=== PATIENT | male | born 1935 | race Caucasian/White ===

== ENCOUNTER → 2017-07-02 | Outpatient (CLI) | payer MEDICARE, BC ==
[~2017-07-02] MED LIST: ASCRIPTIN PO; ASPIRIN 81M81 MG/TA2 PO; ATENOLOL PO; ATENOLOL25 MG PO; BETAPACE 120MG120 MG PO; BETAPACE 80MG80 MG PO; BUFFERED ASPIR325 M1 PO; CEPHALEXIN500 M1 PO; DILTIAZEM PO; DIOVAN160 MG PO; ELIQUIS 5MG PO; FERROUS SU325 MG/TAB PO; FISH OIL CONC1000 MG PO; FLOMAX 0.40.4 MG/CAP PO; FLOMAX PO; FOLIC ACID 40400 MCG PO; GARLIQUE PO; GLUCOSAMINE PO; GLUCOSAMINE/CHONDROI PO; MACRODANTIN PO; NITROSTAT0.4 MG/TAB SL; PERCOCET 5/321 UDTAB PO; SENOKOT8.6 MG PO; TENORMIN 5050 MG/TAB PO; VASOTEC 5MG5 MG/TAB PO; VITAMIN C500 MG PO; ZOCOR 20MG20 MG PO; ZOCOR 40MG40 MG PO; ZOCOR PO
== END ==
LOC: COL.RAD 13:30
DX: N32.89 Other specified disorders of bladder (principal); K82.0 Obstruction of gallbladder

== ENCOUNTER 2018-02-12 06:25 | Day surgery (SDC) | payer MEDICARE, BC ==
[2018-02-12] VITALS (7 sets, daily range): BP systolic 144–166; BP diastolic 72–82; PULSE 43–66; TEMP 97.3–97.7
[~2018-02-12] VITALS: Ht 172.7 cm; Wt 81.5 kg
[~2018-02-12 06:25] MED LIST changes: +HCTZ12.5TAB PO; -VASOTEC 5MG5 MG/TAB PO; +VASOTEC20 MG PO
[2018-02-12] MEDS ORDERED: PROSCAR 5MG5 MG PO (07:33)
[2018-02-12] MEDS ORDERED: ELIQUIS 5MG PO (07:33)
[2018-02-12] MEDS ORDERED: NORCO 325 MG-51 TAB PO (11:52)
== END 2018-02-12 13:00 | disposition home or self-care (01) ==
LOC: SDCO 06:25
DX: K40.90 Unilateral inguinal hernia, without obstruction or gangrene, not specified as recurrent (principal); I10 Essential (primary) hypertension; Z79.02 Long term (current) use of antithrombotics/antiplatelets; Z79.82 Long term (current) use of aspirin; Z95.1 Presence of aortocoronary bypass graft; Z86.79 Personal history of other diseases of the circulatory system; R33.9 Retention of urine, unspecified; N40.0 Benign prostatic hyperplasia without lower urinary tract symptoms; I51.9 Heart disease, unspecified; Z88.5 Allergy status to narcotic agent; Z79.01 Long term (current) use of anticoagulants
CPT/HCPCS: A4314; C1781; J0690; J2405; J2704; J2710; J3010; J7120

== ENCOUNTER → 2020-06-07 | Outpatient (CLI) | payer MEDICARE, BC ==
[~2020-06-07] MED LIST changes: +NORCO 325 MG-51 TAB PO; +PROSCAR 5MG5 MG PO
== END ==
LOC: COL.RAD 13:42
DX: N32.89 Other specified disorders of bladder (principal); N28.89 Other specified disorders of kidney and ureter; J98.4 Other disorders of lung; N40.0 Benign prostatic hyperplasia without lower urinary tract symptoms; I71.9 Aortic aneurysm of unspecified site, without rupture
CPT/HCPCS: Q9967

== ENCOUNTER 2021-07-25 08:04 | Outpatient (CLI) | payer MEDICARE, BC ==
[~2021-07-25] VITALS: Ht 172.8 cm; Wt 87.0 kg
[2021-07-25 08:42] LABS: HEMATOCRIT 37.9 % (42.0-52.0); HEMOGLOBIN 12.3 g/dl (13.5-18.0); MEAN CELL VOLUME 85 fl (80.0-100.0); MEAN CORPUSCULAR HEMOGLOBIN 28 pg (27.0-31.0); MEAN CORPUSCULAR HGB CONC 33 g/dl (33.0-37.0); MEAN PLATELET VOLUME 9.5 fl (7.4-10.4); PLATELET COUNT 189 K/mm3 (130-400); RED BLOOD COUNT 4.47 M/mm3 (4.20-5.60); REDCELL DISTRIBUTION WIDTH-CV 13.7 % (11.5-14.5)
[2021-07-25] MEDS ORDERED: NITROSTAT0.4 MG/TAB SL (08:49)
[2021-07-25] MEDS ORDERED: HYGROTON 2525 MG/TAB PO (08:51)
[2021-07-25] MEDS ORDERED: NORVASC 5MG5 MG/TAB (08:51)
[2021-07-25 08:55] LABS: INR 2.4 (0.8-3.0); PROTHROMBIN TIME 26.7 SECONDS (9.7-12.8)
[2021-07-25 09:17] LABS: CALCIUM 9.8 mg/dL (8.4-10.2); CREATININE, serum 0.97 mg/dL (0.72-1.25); POTASSIUM 4.4 mmol/L (3.5-4.5)
[2021-07-25 09:31] VITALS: BP 129/70; PULSE 62; TEMP 97.7
[2021-07-25 10:30] VITALS: BP 109/73; PULSE 51
--- NOTE | 2021-07-25 10:30 | NUR ---
pt is awake and alert, sits up in bed, daughter in room, states Dr talked with her in waiting room, pt sips on sprite, no c/o
[2021-07-25 10:45] VITALS: BP 111/74; PULSE 55
[2021-07-25 11:00] VITALS: BP 119/76; PULSE 50
--- NOTE | 2021-07-25 11:00 | NUR ---
PT SITS ON SIDE OF BED, STOOD WITHOUT PROBLEMS. REVIEWED DISCHARGE INST. WITH PT ON MODERATE SEDATION PRECAUTIONS, FOLLOUP WITH COTTON O'RAJENDRA AND REFERRAL THAT WILL BE MADE BY OFFICE WITH VERBAL UNDERSTANDING.
[2021-07-25 11:15] VITALS: BP 120/81; PULSE 60
--- NOTE | 2021-07-25 11:30 | NUR ---
IV D'CD INTACT, PT UP AND DRESSED, DISCHARGED VIA W/C TO CAR WITH FAMILY
== END 2021-07-25 11:30 | disposition home or self-care (01) ==
LOC: COL.RAD 08:04
PROVIDERS: Internal Medicine Cardiovascular Disease
DX: I34.0 Nonrheumatic mitral (valve) insufficiency (principal)
CPT/HCPCS: J2704

== ENCOUNTER → 2021-11-12 | Outpatient (RCR) | payer MEDICARE, BC ==
[~2021-11-12] MED LIST changes: +HYGROTON 2525 MG/TAB PO; +NORVASC 5MG5 MG/TAB
== END | disposition home or self-care (01) ==
LOC: COL.CR
DX: Z48.812 Encounter for surgical aftercare following surgery on the circulatory system (principal)

== ENCOUNTER → 2021-12-10 | Outpatient (RCR) | payer MEDICARE, BC | END | disposition home or self-care (01) | LOC: COL.CR | DX: Z48.812 Encounter for surgical aftercare following surgery on the circulatory system (principal); Z95.2 Presence of prosthetic heart valve ==

== ENCOUNTER → 2022-01-08 | Outpatient (CLI) | payer MEDICARE, BC | LOC: COL.PUL 11:18 | DX: R06.00 Dyspnea, unspecified (principal) ==

== ENCOUNTER 2022-01-09 14:28 | Outpatient (RCR) | payer MEDICARE, BC | END 2022-01-10 | disposition home or self-care (01) | LOC: COL.CR | DX: Z48.812 Encounter for surgical aftercare following surgery on the circulatory system (principal) ==

== ENCOUNTER 2022-02-06 15:06 | Outpatient (RCR) | payer MEDICARE, BC | END 2022-02-09 | disposition home or self-care (01) | LOC: COL.CR | DX: Z48.812 Encounter for surgical aftercare following surgery on the circulatory system (principal) ==

== ENCOUNTER 2022-02-11 08:51 | Outpatient (RCR) | payer SELFPAY ==
[2022-02-14] MEDS ORDERED: MAG-OX 400400 MG/TAB PO (15:48)
[2022-02-14] MEDS ORDERED: TYLENOL 325MG325 MG PO (21:28)
[2022-02-15] MEDS ORDERED: LASIX 20MG TABL20 MG PO (11:57)
[2022-02-15] MEDS ORDERED: ALDACTONE 25MG25 M1 PO (11:58)
== END 2022-03-12 ==
LOC: COL.CR
DX: Z29.8 Encounter for other specified prophylactic measures (principal)

== ENCOUNTER 2022-02-14 14:53 | Observation (INO) | payer MEDICARE, BC ==
[~2022-02-14] VITALS: Ht 172.7 cm; Wt 83.7 kg
[2022-02-14 15:38] LABS: BASO # 0.1 K/mm3 (0.0-0.2); BASO % 0.9 % (0.0-2.0); EOS # 0.3 K/mm3 (0.0-0.7); GRAN # 4.7 K/mm3 (1.4-6.5); GRAN % 73.7 % (42.2-75.2); HEMATOCRIT 41.2 % (42.0-52.0); LYMPH # 0.5 K/mm3 (1.2-3.4); LYMPH % 7.8 % (20.0-51.0); MEAN CELL VOLUME 86 fl (80.0-100.0); MEAN CORPUSCULAR HEMOGLOBIN 27 pg (27-31); MEAN CORPUSCULAR HGB CONC 32 g/dl (33.0-37.0); MONO # 0.8 K/mm3 (0.1-0.6); MONO % 13.3 % (1.7-9.3); PLATELET COUNT 193 K/mm3 (130-400); RED BLOOD COUNT 4.79 M/mm3 (4.20-5.60); REDCELL DISTRIBUTION WIDTH-CV 15.7 % (11.5-14.5)
[2022-02-14 15:44] LABS: INR 2.6 (0.8-3.0); PROTHROMBIN TIME 29.7 SECONDS (9.7-12.8)
[2022-02-14 15:47] LABS: PARTIAL THROMBOPLASTIN TIME 40.3 SECONDS (26.0-37.0)
[2022-02-14] MEDS ORDERED: MAG-OX 400400 MG/TAB PO (15:48)
[2022-02-14 15:52] LABS: ALBUMIN 3.4 gm/dL (3.4-4.8); BILIRUBIN,TOTAL 1.2 mg/dL (0.2-1.2); CALCIUM 8.7 mg/dL (8.4-10.2); CREATININE, serum 1.08 mg/dL (0.72-1.25); POTASSIUM 4.9 mmol/L (3.5-4.5); TOTAL PROTEIN 6.5 gm/dL (6.2-8.1)
[2022-02-14 16:02] LABS: TROPONIN-I 0.054 ng/mL (0.00-0.033)
[2022-02-14] MEDS ORDERED: TYLENOL 325MG325 MG PO (21:28)
[2022-02-14 22:40] VITALS: BP 153/80; PULSE 42; TEMP 97.9
--- NOTE | 2022-02-14 23:20 | NUR ---
Admitted to medical floor from ER- dx SOB, Afib, RVR-cardioverted in ER, CHF,, very pleasant ,alert/oriented, VSS, denies pain/SOB at this time, Tele on SR rate 70/min, Lasix 20 mg IV given as ordered, urinal at bedside- understands we need a urine specimen-- will call when urinates, given a snack at this time- states did not have supper, Understands to call for assistance when out of bed, Echo in AM, Elsa Panda called about most recent troponin of 0.058
[2022-02-15 02:35] LABS: COLLECTION METHOD CLEAN CATCH
[2022-02-15 02:39] LABS: PH 5 (5-8); SQUAMOUS EPITHELIAL None Seen /hpf (0-10); URINE APPEARANCE Clear (CLEAR/HAZY); URINE BACTERIA None Seen /hpf (NONE SEEN); URINE BILIRUBIN Negative (NEGATIVE); URINE BLOOD Negative (NEGATIVE); URINE COLOR Yellow (YELLOW); URINE GLUCOSE Negative (NEGATIVE); URINE KETONE Negative (NEGATIVE); URINE LEUKOCYTE ESTERASE Negative (NEGATIVE); URINE NITRATE Negative (NEGATIVE); URINE PROTEIN(semi-quant) 1+ (NEGATIVE); URINE RBC 0-2 /hpf (0-2); URINE UROBILINOGEN Negative (NEGATIVE)
[2022-02-15 03:53] VITALS: BP 122/72; PULSE 52; TEMP 97.6
--- NOTE | 2022-02-15 05:31 | NUR ---
Did get a few hours of sleep, Tele on- SR at this time, according to Tele, did go back into afib just for a short time last night- HR controlled all night. Did void x2 in restroom, and had 450cc per urinal last night after the Lasix IV.
[2022-02-15 05:53] LABS: BASO # 0.1 K/mm3 (0.0-0.2); EOS # 0.3 K/mm3 (0.0-0.7); EOS % 6.5 % (0.0-4.0); GRAN # 3.5 K/mm3 (1.4-6.5); GRAN % 67.1 % (42.2-75.2); HEMATOCRIT 37.5 % (42.0-52.0); HEMOGLOBIN 11.9 g/dl (13.5-18.0); LYMPH # 0.5 K/mm3 (1.2-3.4); MEAN CELL VOLUME 87 fl (80.0-100.0); MEAN CORPUSCULAR HEMOGLOBIN 28 pg (27-31); MEAN CORPUSCULAR HGB CONC 32 g/dl (33.0-37.0); MEAN PLATELET VOLUME 9.8 fl (7.4-10.4); MONO # 0.8 K/mm3 (0.1-0.6); MONO % 15.2 % (1.7-9.3); PLATELET COUNT 154 K/mm3 (130-400); RED BLOOD COUNT 4.32 M/mm3 (4.20-5.60); REDCELL DISTRIBUTION WIDTH-CV 15.7 % (11.5-14.5)
[2022-02-15 06:12] LABS: CALCIUM 8.7 mg/dL (8.4-10.2); CREATININE, serum 1.08 mg/dL (0.72-1.25); POTASSIUM 4.8 mmol/L (3.5-4.5)
[2022-02-15 06:29] LABS: TROPONIN-I 0.06 ng/mL (0.00-0.033)
[2022-02-15 07:22] VITALS: BP 135/79; PULSE 42; TEMP 97.8
--- NOTE | 2022-02-15 10:50 | NUR ---
Patient sitting in bed upon entering the room. Patient denies any SOB, chest pain, heart racing, or dizziness. Patient reports that he feels well. Patient is A&Ox4, and a SBA. Patient is using the urinal for urine measurement. Call light is w/in reach. Patient encouraged to use it if any needs arise.
[2022-02-15 11:15] VITALS: BP 146/78; PULSE 71; TEMP 98.2
--- NOTE | 2022-02-15 11:40 | NUR ---
First visit from the vessel manager. No needs right now.
[2022-02-15] MEDS ORDERED: LASIX 20MG TABL20 MG PO (11:57)
[2022-02-15] MEDS ORDERED: ALDACTONE 25MG25 M1 PO (11:58)
[2022-02-15 12:00] LABS: MAGNESIUM 1.9 mg/dL (1.6-2.6)
[2022-02-15 12:21] LABS: TSH w REFLEX 1.208 uIU/mL (0.350-4.940)
--- NOTE | 2022-02-15 13:10 | NUR ---
Patient discharged home. IV and telemetry removed by this RN. All education and instructions discussed w/ patient and his daugter. Both verbalized understanding and patient signed appropriate paperwork. Patient denied any concerns at the time of discharge.
== END 2022-02-15 13:00 | disposition home or self-care (01) ==
LOC: COL.ER 14:53 → MEDICAL 20:32
PROVIDERS: Family Medicine; Nurse Practitioner Family; Physician Assistant; ADMIT Student in an Organized Health Care Education/Training Program
DX: I48.0 Paroxysmal atrial fibrillation (principal); I27.20 Pulmonary hypertension, unspecified; I08.1 Rheumatic disorders of both mitral and tricuspid valves; I25.2 Old myocardial infarction; I11.0 Hypertensive heart disease with heart failure; I50.20 Unspecified systolic (congestive) heart failure; E78.5 Hyperlipidemia, unspecified; I25.10 Atherosclerotic heart disease of native coronary artery without angina pectoris; J44.9 Chronic obstructive pulmonary disease, unspecified; E87.5 Hyperkalemia; D64.9 Anemia, unspecified; E87.1 Hypo-osmolality and hyponatremia; E87.2 Acidosis; Z95.1 Presence of aortocoronary bypass graft; Z95.2 Presence of prosthetic heart valve; Z79.899 Other long term (current) drug therapy; Z79.01 Long term (current) use of anticoagulants
CPT/HCPCS: 99223-AI; G0378; J1940; J2250; J2704

== ENCOUNTER → 2022-02-18 | Outpatient (CLI) | payer MEDICARE, BC ==
[~2022-02-18] MED LIST changes: +ALDACTONE 25MG25 M1 PO; +LASIX 20MG TABL20 MG PO; +MAG-OX 400400 MG/TAB PO; +TYLENOL 325MG325 MG PO
[2022-02-18 15:55] LABS: CALCIUM 8.8 mg/dL (8.4-10.2); CREATININE, serum 1.05 mg/dL (0.72-1.25); MAGNESIUM 1.7 mg/dL (1.6-2.6); POTASSIUM 4.4 mmol/L (3.5-4.5)
== END ==
LOC: COL.LAB 14:57
PROVIDERS: Physician Assistant
DX: I50.9 Heart failure, unspecified (principal)

== ENCOUNTER 2022-04-10 14:41 | Outpatient (RCR) | payer SELFPAY | END 2022-04-11 | LOC: COL.CR | DX: Z29.8 Encounter for other specified prophylactic measures (principal) ==

== ENCOUNTER 2022-04-12 14:52 | Outpatient (RCR) | payer SELFPAY | END 2022-05-12 | LOC: COL.CR | DX: Z29.8 Encounter for other specified prophylactic measures (principal) ==

== ENCOUNTER 2022-05-29 15:05 | Outpatient (RCR) | payer SELFPAY ==
[2022-07-04] MEDS ORDERED: CRESTOR20 MG PO (16:43)
[2022-07-10] MEDS ORDERED: ROCEPHIN VIA1 G/VIAL IV ×2 (10:03→10:06)
== END 2022-06-12 ==
LOC: COL.CR
DX: Z29.8 Encounter for other specified prophylactic measures (principal)